=== PATIENT | male | born 1945 | race Caucasian/White ===

== ENCOUNTER 2020-12-27 16:04 | Inpatient (IN) | payer MEDICARE, MEDICAID ==
[~2020-12-27] VITALS: Ht 167.6 cm; Wt 61.2 kg
[~2020-12-27 16:04] MED LIST: CIPR-173; TAM04C
[2020-12-27] MEDS ORDERED: METOPROLOL TARTRATE 1MG/1ML-5ML VIAL IV ONE (16:30)
[2020-12-27 16:43] LABS: Basophils # (auto) 0 10 ^3/uL (0-0.2); Eosinophils # (auto) 0 10 ^3/uL (0-0.8); Hemoglobin 13.5 g/dL (13.5-17.5); Lymphocytes # (auto) 1.3 10 ^3/uL (0.4-5.4); Neutrophils # (auto) 2.9 10 ^3/uL (1.6-8.6); Nucleated Red Blood Cells % 0.1 %
[2020-12-27 16:45] LABS: Basophils % (auto) 0.3 % (0.0-2.0); Eosinophils % (auto) 0.4 % (0.0-7.0); Hematocrit 37.4 % (41.0-53.0); Lymphocytes % (auto) 26.7 % (10.0-50.0); Mean Corpuscular Hemoglobin 34.6 pg (28.0-32.0); Mean Corpuscular Hgb Conc. 36.1 g/dL (32.0-36.0); Mean Corpuscular Volume 95.9 fL (80.0-100.0); Monocytes # (auto) 0.6 10 ^3/uL (0-1.3); Monocytes % (auto) 11.7 % (0.0-12.0); Neutrophils % (auto) 60.9 % (37.0-80.0); Platelet Count (auto) 150 10^3/uL (140-450); Red Cell Distribution Width 12.8 % (11.8-14.3); White Blood Cell 4.8 10^3/uL (4.4-10.8)
[2020-12-27 16:54] LABS: Albumin 3.9 g/dL (3.4-5.0); Anion Gap 6 (5-15); Blood Urea Nitrogen 19 mg/dL (7-18); Carbon Dioxide 28 mmol/L (21-32); Chloride 102 mmol/L (98-107); Glucose 120 mg/dL (74-106); Potassium 4.1 mmol/L (3.5-5.1); Sodium 136 mmol/L (136-145)
[2020-12-27 17:00] LABS: Alanine Aminotransferase 24 U/L (16-61); Alkaline Phosphatase 84 U/L (45-117); Aspartate Aminotransferase 18 U/L (15-37); BUN/Creatinine Ratio 23.2; Bilirubin, Total 0.5 mg/dL (0.2-1.0); GFR African American 117 mL/min; GFR Non-African American 97 mL/min
[2020-12-27 17:26] LABS: Urine Bacteria NONE SEEN /hpf (None Seen); Urine Blood Negative /uL (Negative); Urine Specific Gravity 1.006 (1.001-1.035); Urine WBC <1 /hpf (0 - 3)
[2020-12-27] MEDS ORDERED: CLON0.5T PO (18:47)
[2020-12-27] MEDS ORDERED: DRON400T PO (18:47)
[2020-12-27 18:53] VITALS: BP 102/97
[2020-12-27] MEDS ORDERED: MORPHINE SULFATE 4 MG/ML SYR/VIAL IV PRN (19:00)
[2020-12-27] MEDS ORDERED: MORPHINE SULF INJ 2 MG/ML SYRINGE 1ML IV PRN (19:00)
[2020-12-27] MEDS ORDERED: clonazePAM 0.5 MG TAB PO PRN (19:00)
[2020-12-27] MEDS ORDERED: NITROGLYCERIN 0.4 MG SL TAB SL PRN (19:00)
[2020-12-27] MEDS ORDERED: ACETAMINOPHEN 325 MG TAB PO PRN (19:00)
[2020-12-27] MEDS ORDERED: HYDROcodone-ACET 5/325MG TAB PO PRN (19:00)
[2020-12-27] MEDS ORDERED: PATIENTS OWN MEDICATION (Dronedarone Hydrochloride (Multaq) 1 TAB) PO SCH (22:00)
[2020-12-28] MEDS ORDERED: TAMSULOSIN HYDROCHLORIDE 0.4 MG CAP PO SCH (10:00)
== END 2020-12-27 19:02 | disposition left against medical advice (07) | DRG 310 ==
LOC: ER 16:04 → TELE 18:56
PROVIDERS: ADMIT Nurse Practitioner; ATTEND Nurse Practitioner
DX: I47.1 Supraventricular tachycardia (principal); I48.19 Other persistent atrial fibrillation; I10 Essential (primary) hypertension; F41.9 Anxiety disorder, unspecified; Z53.29 Procedure and treatment not carried out because of patient's decision for other reasons; N40.0 Benign prostatic hyperplasia without lower urinary tract symptoms; Z88.0 Allergy status to penicillin; Z88.2 Allergy status to sulfonamides; Z79.899 Other long term (current) drug therapy; Z86.16 Personal history of COVID-19
CPT/HCPCS: 36415; 71045; 80053; 81001; 83735; 84443; 84484; 85025; 93005; 96374; G0378

== ENCOUNTER 2020-12-29 02:50 | Inpatient (IN) | payer MEDICARE, MEDICAID ==
[~2020-12-29] VITALS: Ht 167.6 cm; Wt 69.6 kg
[~2020-12-29 02:50] MED LIST changes: +CLON0.5T PO; +DRON400T PO
[2020-12-29] MEDS ORDERED: dilTIAZem 25 MG/5 ML VIAL IV ONE ×2 (03:30→04:15)
[2020-12-29] MEDS: dilTIAZem HCL 60 MG TAB PO ONE (03:30)
[2020-12-29 03:52] LABS: Basophils # (auto) 0 10 ^3/uL (0-0.2); Basophils % (auto) 0.5 % (0.0-2.0); Eosinophils # (auto) 0 10 ^3/uL (0-0.8); Eosinophils % (auto) 0.7 % (0.0-7.0); Hematocrit 37.8 % (41.0-53.0); Hemoglobin 13.4 g/dL (13.5-17.5); Lymphocytes # (auto) 1.1 10 ^3/uL (0.4-5.4); Lymphocytes % (auto) 21.9 % (10.0-50.0); Mean Corpuscular Hemoglobin 34.5 pg (28.0-32.0); Mean Corpuscular Hgb Conc. 35.6 g/dL (32.0-36.0); Mean Corpuscular Volume 97.1 fL (80.0-100.0); Monocytes # (auto) 0.6 10 ^3/uL (0-1.3); Monocytes % (auto) 11.9 % (0.0-12.0); Neutrophils # (auto) 3.2 10 ^3/uL (1.6-8.6); Nucleated Red Blood Cells % 0.1 %; Red Blood Cells 3.89 10^6/uL (4.5-5.90); Red Cell Distribution Width 13.1 % (11.8-14.3); White Blood Cell 4.9 10^3/uL (4.4-10.8)
[2020-12-29 04:07] LABS: INR 1.05 (0.9-1.15); Partial Thromboplastin Time 26.3 sec (23.0-31.2)
[2020-12-29 04:15] LABS: Alanine Aminotransferase 23 U/L (16-61); Albumin 4.2 g/dL (3.4-5.0); Anion Gap 11 (5-15); Aspartate Aminotransferase 18 U/L (15-37); BUN/Creatinine Ratio 25.6; Blood Urea Nitrogen 22 mg/dL (7-18); Calcium 8.5 mg/dL (8.5-10.1); Carbon Dioxide 25 mmol/L (21-32); Chloride 99 mmol/L (98-107); GFR African American 111 mL/min; GFR Non-African American 92 mL/min; Glucose 97 mg/dL (74-106); Magnesium 2.5 mg/dL (1.6-2.6); Potassium 3.9 mmol/L (3.5-5.1); Sodium 135 mmol/L (136-145)
[2020-12-29 04:21] LABS: Alkaline Phosphatase 78 U/L (45-117); Bilirubin, Total 0.5 mg/dL (0.2-1.0); Total Protein 7.1 g/dL (6.4-8.2)
[2020-12-29] MEDS ORDERED: METOPROLOL TARTRATE 1MG/1ML-5ML VIAL IV ONE (04:39)
[2020-12-29] MEDS: METOPROLOL TARTRATE 1MG/1ML-5ML VIAL IV SCH ×2 (04:51→05:06)
[2020-12-29] MEDS ORDERED: NITROGLYCERIN 0.4 MG SL TAB SL PRN (07:30)
[2020-12-29] MEDS ORDERED: DOCUSATE SOD 100 MG CAP PO PRN (07:30)
[2020-12-29] MEDS ORDERED: MORPHINE SULFATE 4 MG/ML SYR/VIAL IV PRN (07:30)
[2020-12-29] MEDS ORDERED: HYDROcodone-ACET 5/325MG TAB PO PRN (07:30)
[2020-12-29] MEDS ORDERED: MORPHINE SULFATE INJECTION 2 MG/ML SYRG IV PRN (07:30)
[2020-12-29] MEDS: FAMOTIDINE 20 MG TAB PO SCH ×2 (09:20→21:57)
[2020-12-29] MEDS: clonazePAM 0.5 MG TAB PO PRN ×2 (09:20→21:59)
[2020-12-29] MEDS: DRONEDARONE HCL 400 MG TAB PO SCH ×2 (09:20→21:54)
[2020-12-29 11:38] LABS: Cholesterol 114 mg/dL (< 200); HDL Cholesterol 65 mg/dL (40-59); LDL Cholesterol 49 mg/dL (< 100); Triglycerides 22 mg/dL (< 150)
[2020-12-29 14:34] VITALS: BP 138/72
[2020-12-29 17:00] VITALS: BP 120/64
[2020-12-29] MEDS ORDERED: TAMSULOSIN HYDROCHLORIDE 0.4 MG CAP PO SCH (18:00)
[2020-12-29] MEDS: METOPROLOL TARTRATE 25 MG TAB PO SCH (21:54)
[2020-12-29 22:00] VITALS: BP 113/68
[2020-12-30 05:00] VITALS: BP 102/53
[2020-12-30 07:49] LABS: Potassium 4.1 mmol/L (3.5-5.1)
[2020-12-30 07:51] LABS: Basophils # (auto) 0 10 ^3/uL (0-0.2); Basophils % (auto) 0.7 % (0.0-2.0); Eosinophils # (auto) 0 10 ^3/uL (0-0.8); Eosinophils % (auto) 1.4 % (0.0-7.0); Hematocrit 32.9 % (41.0-53.0); Hemoglobin 11.7 g/dL (13.5-17.5); Lymphocytes # (auto) 1.2 10 ^3/uL (0.4-5.4); Lymphocytes % (auto) 37.2 % (10.0-50.0); Mean Corpuscular Hemoglobin 34.1 pg (28.0-32.0); Mean Corpuscular Hgb Conc. 35.5 g/dL (32.0-36.0); Monocytes # (auto) 0.4 10 ^3/uL (0-1.3); Monocytes % (auto) 12.2 % (0.0-12.0); Neutrophils # (auto) 1.6 10 ^3/uL (1.6-8.6); Neutrophils % (auto) 48.5 % (37.0-80.0); Red Blood Cells 3.42 10^6/uL (4.5-5.90); Red Cell Distribution Width 12.9 % (11.8-14.3); White Blood Cell 3.2 10^3/uL (4.4-10.8)
[2020-12-30 07:56] LABS: Albumin 3.2 g/dL (3.4-5.0); BUN/Creatinine Ratio 17.9; Calcium 8.4 mg/dL (8.5-10.1)
[2020-12-30 07:59] LABS: Bilirubin, Total 0.6 mg/dL (0.2-1.0); Total Protein 5.7 g/dL (6.4-8.2)
[2020-12-30 09:00] VITALS: BP 102/61
[2020-12-30] MEDS: METOPROLOL TARTRATE 25 MG TAB PO SCH (10:00)
[2020-12-30] MEDS: DRONEDARONE HCL 400 MG TAB PO SCH (10:58)
[2020-12-30] MEDS: FAMOTIDINE 20 MG TAB PO SCH (10:58)
[2020-12-30 11:09] VITALS: BP 102/61
== END 2020-12-30 14:00 | disposition home or self-care (01) | DRG 310 ==
LOC: ER 02:52 → TELE 02:53 → TELE-WESTW 13:28
PROVIDERS: ADMIT Nurse Practitioner; ATTEND Nurse Practitioner
DX: I48.0 Paroxysmal atrial fibrillation (principal); I48.92 Unspecified atrial flutter; F41.9 Anxiety disorder, unspecified; Z20.822 Contact with and (suspected) exposure to COVID-19; N40.0 Benign prostatic hyperplasia without lower urinary tract symptoms; F32.9 Major depressive disorder, single episode, unspecified; I10 Essential (primary) hypertension; I49.9 Cardiac arrhythmia, unspecified; Z87.01 Personal history of pneumonia (recurrent); Z91.19 Patient's noncompliance with other medical treatment and regimen; Z79.899 Other long term (current) drug therapy; Z86.711 Personal history of pulmonary embolism; Z87.891 Personal history of nicotine dependence; Z88.0 Allergy status to penicillin; Z88.2 Allergy status to sulfonamides
CPT/HCPCS: 36415; 71045; 80053; 80061; 83735; 83880; 84443; 84484; 85025; 85610; 85730; 87081; 87426; 93005; 93306; 96374; 96375; 96376; G0378

== ENCOUNTER 2023-03-30 17:02 | Emergency (ER) | payer MEDICARE, MEDICAID ==
[~2023-03-30] VITALS: Ht 170.2 cm; Wt 67.0 kg
[~2023-03-30 17:02] MED LIST changes: -CIPR-173; +CLON-1003 PO; -CLON0.5T PO; -TAM04C
[2023-03-30 17:59] LABS: Basophils # (auto) 0 10 ^3/uL (0-0.2); Eosinophils # (auto) 0 10 ^3/uL (0-0.8); Monocytes # (auto) 0.5 10 ^3/uL (0-1.3); Neutrophils # (auto) 4.2 10 ^3/uL (1.6-8.6)
[2023-03-30 18:01] LABS: Basophils % (auto) 0.3 % (0.0-2.0); Eosinophils % (auto) 0.2 % (0.0-7.0); Hematocrit 38.7 % (41.0-53.0); Hemoglobin 13.6 g/dL (13.5-17.5); Lymphocytes % (auto) 17.4 % (10.0-50.0); Mean Corpuscular Hemoglobin 34.5 pg (28.0-32.0); Mean Corpuscular Hgb Conc. 35.3 g/dL (32.0-36.0); Mean Corpuscular Volume 97.7 fL (80.0-100.0); Monocytes % (auto) 8.6 % (0.0-12.0); Neutrophils % (auto) 73.5 % (37.0-80.0); Red Blood Cells 3.96 10^6/uL (4.5-5.90); Red Cell Distribution Width 12.5 % (11.8-14.3); White Blood Cell 5.8 10^3/uL (4.4-10.8)
[2023-03-30 18:14] LABS: Albumin 4.1 g/dL (3.4-5.0); Calcium 8.3 mg/dL (8.5-10.1); Potassium 4.3 mmol/L (3.5-5.1)
[2023-03-30 18:18] LABS: BUN/Creatinine Ratio 25.3 (10.0-20.0); Bilirubin, Total 0.9 mg/dL (0.2-1.0); Total Protein 6.3 g/dL (6.4-8.2)
[2023-03-30 18:29] LABS: INR 1.1 (0.9-1.15); Partial Thromboplastin Time 27.2 sec (24.6-33.4)
[2023-03-30 21:00] VITALS: BP 123/57
== END 2023-03-30 21:26 | disposition left against medical advice (07) ==
LOC: ER 17:02
DX: I48.20 Chronic atrial fibrillation, unspecified (principal); I49.9 Cardiac arrhythmia, unspecified; R77.8 Other specified abnormalities of plasma proteins
CPT/HCPCS: 36415; 71045; 80053; 83735; 83880; 84484; 85025; 85610; 85730; 93005; 99291

== ENCOUNTER 2024-02-11 02:01 | Inpatient (IN) | payer MEDICARE, MEDICAID ==
[~2024-02-11] VITALS: Ht 170.2 cm; Wt 72.1 kg
[2024-02-11 04:37] LABS: Urine Bacteria FEW /hpf (None Seen); Urine Blood 2+ /uL (Negative); Urine Clarity Clear (Clear); Urine Color Yellow (Yellow); Urine Protein, UAD Negative (Negative); Urine Specific Gravity 1.015 (1.001-1.035); Urine Urobilinogen Normal (Negative); Urine WBC 6 /hpf (0 - 3)
[2024-02-11 09:52] LABS: Basophils # (auto) 0 10 ^3/uL (0-0.2); Basophils % (auto) 0.4 % (0.0-2.0); Eosinophils # (auto) 0 10 ^3/uL (0-0.8); Hemoglobin 12.7 g/dL (13.5-17.5); Lymphocytes % (auto) 25.7 % (10.0-50.0); Mean Corpuscular Hemoglobin 33.5 pg (28.0-32.0); Mean Corpuscular Hgb Conc. 35.1 g/dL (32.0-36.0); Mean Corpuscular Volume 95.3 fL (80.0-100.0); Monocytes # (auto) 0.4 10 ^3/uL (0-1.3); Monocytes % (auto) 10.1 % (0.0-12.0); Neutrophils # (auto) 2.5 10 ^3/uL (1.6-8.6); Neutrophils % (auto) 62.8 % (37.0-80.0); Red Blood Cells 3.78 10^6/uL (4.5-5.90); Red Cell Distribution Width 12.5 % (11.8-14.3)
[2024-02-11 09:58] LABS: INR 1.1 (0.9-1.15); Partial Thromboplastin Time 26.8 SEC (24.5-34.5); Prothrombin Time 11.6 sec (9.3-11.8)
[2024-02-11] MEDS: levoFLOXacin 500MG 100 ML IV ONE (10:05)
[2024-02-11] MEDS: SODIUM CHLORIDE 0.9% 1,000 ML IV ONE ×2 (10:05→12:44)
[2024-02-11 10:07] LABS: Alanine Aminotransferase 15 U/L (7-40); Albumin 4.5 g/dL (3.2-4.8); Alkaline Phosphatase 64 U/L (46-116); Anion Gap 5 (5-15); Aspartate Aminotransferase 19 U/L (13-40); BUN/Creatinine Ratio 20.7 (10.0-20.0); Bilirubin, Total 0.7 mg/dL (0.2-1.0); Blood Urea Nitrogen 19 mg/dL (9-23); Calcium 9.5 mg/dL (8.5-10.1); Carbon Dioxide 28 mmol/L (20-30); Chloride 103 mmol/L (98-107); Glucose 115 mg/dL (74-106); Potassium 3.9 mmol/L (3.5-5.1); Sodium 136 mmol/L (136-145); Total Protein 6.6 g/dL (5.7-8.2)
[2024-02-11 10:11] VITALS: PULSE 67; RESP 18; O2SAT 97
[2024-02-11] MEDS ORDERED: NITROGLYCERIN 0.4 MG SL TAB SL PRN (14:00)
[2024-02-11] MEDS ORDERED: MORPHINE SULFATE INJ 2 MG/ml SYRG IV PRN ×2 (14:00)
[2024-02-11] MEDS ORDERED: HYDROcodone-ACET 5/325MG TAB PO PRN (14:00)
[2024-02-11] MEDS ORDERED: ACETAMINOPHEN 325 MG TAB PO PRN (14:00)
[2024-02-11 17:00] VITALS: BP 138/68; PULSE 51; RESP 18; TEMP 98.4; O2SAT 99
[2024-02-11 20:00] VITALS: PULSE 53; RESP 18; O2SAT 97
[2024-02-11 21:00] VITALS: BP 161/56; PULSE 53; RESP 18; TEMP 98.1; O2SAT 97
[2024-02-11] MEDS: DRONEDARONE HCL 400 MG TAB PO SCH (22:19)
[2024-02-11 22:20] VITALS: BP 139/58; PULSE 56
[2024-02-12] VITALS (8 sets, daily range): BP systolic 119–155; BP diastolic 51–74; PULSE 52–70; RESP 18–22; TEMP 97.5–98.4; O2SAT 94–99
[2024-02-12 07:53] LABS: Basophils # (auto) 0 10 ^3/uL (0-0.2); Basophils % (auto) 0.5 % (0.0-2.0); Eosinophils # (auto) 0.1 10 ^3/uL (0-0.8); Eosinophils % (auto) 1.5 % (0.0-7.0); Hemoglobin 12.3 g/dL (13.5-17.5); Lymphocytes % (auto) 29.5 % (10.0-50.0); Mean Corpuscular Hemoglobin 33.9 pg (28.0-32.0); Mean Corpuscular Hgb Conc. 35.2 g/dL (32.0-36.0); Mean Corpuscular Volume 96.2 fL (80.0-100.0); Monocytes # (auto) 0.5 10 ^3/uL (0-1.3); Monocytes % (auto) 13.6 % (0.0-12.0); Neutrophils # (auto) 1.9 10 ^3/uL (1.6-8.6); Neutrophils % (auto) 54.9 % (37.0-80.0); Nucleated Red Blood Cells % 0.1 %; Red Blood Cells 3.64 10^6/uL (4.5-5.90); Red Cell Distribution Width 12.5 % (11.8-14.3); White Blood Cell 3.4 10^3/uL (4.4-10.8)
[2024-02-12 08:02] LABS: Chloride 108 mmol/L (98-107); Potassium 3.9 mmol/L (3.5-5.1); Sodium 140 mmol/L (136-145)
[2024-02-12 08:03] LABS: Anion Gap 4 (5-15); Calcium 9.3 mg/dL (8.5-10.1); Carbon Dioxide 28 mmol/L (20-30)
[2024-02-12 08:08] LABS: BUN/Creatinine Ratio 16.5 (10.0-20.0); Blood Urea Nitrogen 14 mg/dL (9-23); Glucose 96 mg/dL (74-106)
[2024-02-12] MEDS: cefTRIAXone 1GM/50ML D5W 50 ML IV ONE (09:22)
[2024-02-12] MEDS: METOPROLOL TARTRATE 25 MG TAB PO SCH (10:00)
[2024-02-12] MEDS ORDERED: ENOXAPARIN SOD 40 MG/0.4 ML SYRINGE SC SCH (10:00)
[2024-02-13 01:00] VITALS: BP 120/60; PULSE 61; RESP 20; TEMP 98.1; O2SAT 95
[2024-02-13 05:00] VITALS: BP 120/59; PULSE 69; RESP 20; TEMP 98.1; O2SAT 94
[2024-02-13 07:30] VITALS: PULSE 47; RESP 18; O2SAT 97
[2024-02-13 08:06] LABS: PSA Free 0.51 ng/mL; Prostate Specific Antigen 1.9 ng/mL (0.0-4.0)
[2024-02-13 08:42] VITALS: BP 144/52; PULSE 50; RESP 18; TEMP 97.1; O2SAT 99
== END 2024-02-13 12:05 | disposition left against medical advice (07) | DRG 690 ==
LOC: ER 02:01 → OVERFLOW 14:00 → EAST 16:26 → TELE-EAST 02-12 10:21
PROVIDERS: ADMIT Nurse Practitioner Family; ATTEND Nurse Practitioner Family
DX: N10 Acute pyelonephritis (principal); I47.19 Other supraventricular tachycardia; I48.92 Unspecified atrial flutter; E66.01 Morbid (severe) obesity due to excess calories; I48.0 Paroxysmal atrial fibrillation; Z53.29 Procedure and treatment not carried out because of patient's decision for other reasons; N40.0 Benign prostatic hyperplasia without lower urinary tract symptoms; D64.9 Anemia, unspecified; I49.9 Cardiac arrhythmia, unspecified; I10 Essential (primary) hypertension; Z66 Do not resuscitate; I37.1 Nonrheumatic pulmonary valve insufficiency; Z68.24 Body mass index [BMI] 24.0-24.9, adult; Z88.0 Allergy status to penicillin; Z82.49 Family history of ischemic heart disease and other diseases of the circulatory system; Z79.899 Other long term (current) drug therapy; Z87.891 Personal history of nicotine dependence; Z91.199 Patient's noncompliance with other medical treatment and regimen due to unspecified reason; Z88.2 Allergy status to sulfonamides
CPT/HCPCS: 36415; 71045; 74176; 80048; 80053; 81001; 83880; 84154; 84484; 85025; 85610; 85730; 87086; 93306; 96365; G0378; J1956

== ENCOUNTER 2025-08-31 21:38 | Inpatient (IN) | payer MEDICARE, MEDICAID ==
[~2025-08-31] VITALS: Ht 170.2 cm; Wt 69.2 kg
--- NOTE | 2025-08-31 22:07 | ED.PDOC ---
History of Present Illness HPI Comments 80-year-old male who came to ER due to urinary issues. Patient has for the past 3 days has been having intermittent episodes of gross hematuria. Noted also of urinary frequency. Denies any other urinary symptoms such as dysuria or lower abdominal pain or back pains. Patient currently being treated for UTI with Macrobid. Does have history of hypertension and AFib, denies taking any blood thinners REVIEW OF SYSTEMS: General: No fever, no chills, or fatigue HEENT: No sore throat, no earache, no congestion, no neck pain. Cardiac: No chest pain. No palpitations. Lungs: No shortness of breath, no cough. GI: No nausea, no vomiting, no diarrhea, no constipation, no abdominal pain : No dysuria, frequency, or urgency. (+) hematuria. Musculoskeletal: No joint pain , no joint swelling, no extremity edema. Skin: No rash, no itching. Neuro: No headache, no dizziness, no weakness EXAM: General: Awake, alert and oriented. No acute distress. Skin: Skin in warm, dry and intact. Appropriate color for ethnicity. HEENT: The head is normocephalic and atraumatic. Conjunctivae are clear without exudates or hemorrhage. Sclera is non-icteric. EOM are intact. No signs of nystagmus. Eyelids are normal in appearance without swelling or lesions. Oral mucosa is pink and moist Neck: The neck is supple with normal range of motion. No JVD. Cardiac: Heart rate and rhythm are normal. No murmurs, gallops, or rubs are auscultated. Respiratory: No signs of respiratory distress. Lung sounds are clear in all lobes bilaterally without rales, rhonchi, or wheezes. Abdominal: Abdomen is soft, non-tender without distention. Bowel sounds are present and normoactive in all four quadrants. No CVA tenderness Extremities: Upper and lower extremities are atraumatic in appearance without deformity or edema. Neurological: The patient is awake, alert and oriented to person, place, and time with normal speech. Speech is clear. There is no facial asymmetry. Psychiatric: Appropriate mood and affect. Good judgement and insight Chief Complaint: Urinary Time Seen by MD: 22:07 Primary Care Provider: NONE Reviewed Notes: Nurses Notes Allergies: Coded Allergies: Penicillins (Verified Allergy, Unknown, 12/27/20) Sulfa Drugs (Verified Allergy, Unknown, 12/27/20) Home Meds Reported Medications Clonazepam (Klonopin) 0.5 Mg Tab, 1 TAB PO BID PRN for ANXIETY, #60 TAB 1 Refill 12/27/20 Dronedarone Hydrochloride (Multaq) 400 Mg Tab, 1 TAB PO BID, #180 TAB 1 Refill 12/27/20 Information Source: Patient Mode of Arrival: Ambulatory Past Medical History PAST MEDICAL HISTORY: AFIB, HTN Surgical History: Hernia Repair Family History Family History: Reviewed,noncontributory to illness Social History Smoker: Non-Smoker Alcohol: Denies ETOH Use Drugs: Denies Drug Use Lives In: Home Was a procedure done? Was a procedure done?: No Differential Dx Considerations may include: Urinary tract infection, kidney stones, anemia, other X-Ray, Labs, Meds, VS Vital Signs Date Time Temp Pulse Resp B/P (MAP) Pulse Ox O2 Delivery O2 Flow Rate FiO2 09/01/25 00:00 98.4 53 12 159/98 (118) 97 98.4 08/31/25 21:44 97.6 58 18 174/94 98 97.6 Lab Test 08/31/25 22:30 08/31/25 22:16 Range/Units Urine Color Colorless Yellow Urine Clarity Clear Clear Urine pH 7.0 5.0-9.0 Urine Specific [place] 1.005 1.001-1.035 Urine Protein Negative Negative Urine Ketones Negative Negative Urine Blood 2+ H Negative /uL Urine Nitrite Negative Negative Urine Bilirubin Negative Negative Urine Urobilinogen Normal Negative mg/dL Urine Leukocyte Esterase Negative Negative /uL Urine RBC 5 0 - 3 /hpf Urine Microscopic WBC 1 0-3 /HPF Urine Squamous Epithelial Cells None seen <5 /hpf Urine Bacteria None seen None Seen /hpf Urine Glucose Normal Normal mg/dL White Blood Count 4.6 4.4-10.8 10^3/uL Red Blood Count 4.00 L 4.5-5.90 10^6/uL Hemoglobin 13.1 L 13.5-17.5 g/dL Hematocrit 36.7 L 41.0-53.0 % Mean Corpuscular Volume 91.8 80.0-100.0 fL Mean Corpuscular Hemoglobin 32.9 H 28.0-32.0 pg Mean Corpuscular Hemoglobin Concent 35.8 32.0-36.0 g/dL Red Cell Distribution Width 12.4 11.8-14.3 % Platelet Count 151 140-450 10^3/uL Mean Platelet Volume 8.5 6.9-10.8 fL Neutrophils (%) (Auto) 56.7 37.0-80.0 % Lymphocytes (%) (Auto) 31.1 10.0-50.0 % Monocytes (%) (Auto) 11.5 0.0-12.0 % Eosinophils (%) (Auto) 0.3 0.0-7.0 % Basophils (%) (Auto) 0.4 0.0-2.0 % Neutrophils # (Auto) 2.6 1.6-8.6 10 ^3/uL Lymphocytes # (Auto) 1.4 0.4-5.4 10 ^3/uL Monocytes # (Auto) 0.5 0-1.3 10 ^3/uL Eosinophils # (Auto) 0 0-0.8 10 ^3/uL Basophils # (Auto) 0 0-0.2 10 ^3/uL Nucleated Red Blood Cells 0.0 % Prothrombin Time 11.6 9.3-11.8 sec Prothrombin Time INR 1.11 0.9-1.15 Sodium Level 132 L 136-145 mmol/L Potassium Level 4.4 3.5-5.1 mmol/L Chloride Level 99 98-107 mmol/L Carbon Dioxide Level 26 20-31 mmol/L Anion Gap 7 5-15 Blood Urea Nitrogen 15 9-23 mg/dL Creatinine 0.87 0.700-1.30 mg/dL Glomerular Filtration Rate Calc 86 >90 mL/min BUN/Creatinine Ratio 17.2 10.0-20.0 Serum Glucose 109 H 74-106 mg/dL Calcium Level 9.2 8.7-10.4 mg/dL Exam: CT CT AB PEL WO CON-NO ORAL OR IV History: Hematuria Comparison Study: CT CT AB PEL WO CON-NO ORAL OR IV on DOS: 02/11/24 TECHNIQUE: Multidetector CT of the abdomen and pelvis was performed from lung bases to pubic symphysis. Imaging was performed without IV contrast. Axial, coronal, and sagittal multiplanar reformats were obtained from the axial data set by the technologist. RADIATION DOSE: CTDI vol 9.2 mGy. DLP 463.6 mGy.cm Findings: Limited evaluation of the solid organs in the absence of IV contrast. Lungs: Minimal basilar atelectasis/scarring. Liver: Hepatic cysts and additional too small to characterize lesions. Spleen: Unremarkable. Pancreas: Unremarkable. Gallbladder: Unremarkable. Adrenals: Unremarkable Kidneys: Right renal cyst. No hydronephrosis. Pelvic Viscera: There is wall thickening and mild stranding about the urinary bladder. Marked prostatomegaly with indentation upon the posterior aspect of the urinary bladder. Vasculature: Atherosclerotic aortoiliac calcification. Retroperitoneum: Unremarkable. Bowel: No bowel obstruction. The appendix is normal. Musculoskeletal: Fusion of L2-3. Multilevel schmorl's nodes. Soft tissues: Tiny fat containing left inguinal hernia. Impression: 1. Wall thickening of the urinary bladder, clinical correlation is suggested to exclude cystitis. Prostatomegaly with indentation upon the posterior aspect of the urinary bladder. 2. Additional findings as detailed. Time of 1ST Reevaluation: 22:03 Reevaluation 1ST: Unchanged Patient Education/Counseling: Need For Follow Up Family Education/Counseling: No Family Present SEPSIS Sepsis Screen Date sepsis recognized/suspect: Aug 31, 2025 Time Sepsis recognized/suspect: 2145 Recent Procedure: No On Antibiotic Therapy: Yes Respiratory Rate >20: No Heart Rate >90: No Temp<36 C (96.8 F) or >38.3 C: No SBP <90 or MAP <65 mmHG: No New Acute Mental Status Change: No Is the patient on CPAP, BIPAP,: No Physician Orders Ct Ab Pel Wo Con-No Oral Or Iv (08/31/25 22:08) Admit (09/01/25 00:03) Acetaminophen Tablet (Tylenol Tablet) (09/01/25 00:15) Hydrocodone-Acet 5/325mg Tab ([place] 5/32 (09/01/25 00:15) Ondansetron Hcl (Zofran) (09/01/25 00:15) Docusate Sodium Capsule (Colace Capsule) (09/01/25 00:15) Complete Blood Count (09/02/25 04:00) Comprehensive Metabolic Panel (09/02/25 04:00) Cardiac Diet-2gna,Lofat,Lochol (09/01/25 Breakfast) Morphine Sulfate Injection (09/01/25 00:15) Nitroglycerin Sublingual (Ntrostat Subli (09/01/25 00:15) Morphine Sulfate Injection (09/01/25 00:15) Stat Ekg For Chest Pain (09/01/25 00:03) Notify Md Of Changes From Base (09/01/25 00:03) Payroll Machine Operator For 24 Hours (09/01/25 00:03) Emergency Dysrhythmia Protocol (09/01/25 00:03) Rhythm Strips Once Every Shift (09/01/25 00:03) Oxygen By Nasal Cannula (09/01/25 00:03) Ceftriaxone 1gm/50ml (Rocephin) (09/01/25 09:00) * Urology Consult (09/01/25 00:06) Vital Signs Date Time Temp Pulse Resp B/P (MAP) Pulse Ox O2 Delivery O2 Flow Rate FiO2 09/01/25 00:00 98.4 53 12 159/98 (118) 97 98.4 08/31/25 21:44 97.6 58 18 174/94 98 97.6 Laboratory Tests Test 08/31/25 22:16 White Blood Count 4.6 10^3/uL (4.4-10.8) Departure 1 Departure Time of Disposition: 23:27 Impression: Primary Impression: Hematuria Disposition: ADMITTED INPATIENT Condition: Stable Comments Patient admitted to hospitalist service for further treatment, evaluation and monitoring. Critical Care Note Critical Care Time?: No Stability Stability form required: No Heart Score Heart Score: Heart Score Response (Comments) Value History N/A 0 EKG N/A 0 Age N/A 0 Risk Factors N/A 0 Troponin N/A 0 Total 0 I personally scribed for WALTER VERAS MD ([email or web address]) on 08/31/25 at 22:07. Electronically submitted by Kenny Andre ([email or web address]). I personally scribed for WALTER VERAS MD ([email or web address]) on 08/31/25 at 22:08. Electronically submitted by Kenny Andre ([email or web address]). I personally scribed for WALTER VERAS MD ([email or web address]) on 08/31/25 at 23:33. Electronically submitted by Kenny Andre ([email or web address]). WALTER VERAS MD Aug 31, 2025 22:07
[2025-08-31 22:44] LABS: Hematocrit 36.7 % (41.0-53.0); Hemoglobin 13.1 g/dL (13.5-17.5); Mean Corpuscular Hemoglobin 32.9 pg (28.0-32.0); Mean Corpuscular Volume 91.8 fL (80.0-100.0); Nucleated Red Blood Cells % 0.0 %
[2025-08-31 22:49] LABS: Chloride 99 mmol/L (98-107); Potassium 4.4 mmol/L (3.5-5.1)
[2025-08-31 22:50] LABS: Anion Gap 7 (5-15); Carbon Dioxide 26 mmol/L (20-31)
[2025-08-31 22:51] LABS: Calcium 9.2 mg/dL (8.7-10.4)
[2025-08-31 22:55] LABS: BUN/Creatinine Ratio 17.2 (10.0-20.0); Blood Urea Nitrogen 15 mg/dL (9-23)
[2025-08-31 22:58] LABS: INR 1.11 (0.9-1.15); Prothrombin Time 11.6 sec (9.3-11.8)
--- NOTE | 2025-08-31 23:02 | DVH ---
Exam: CT CT AB PEL WO CON-NO ORAL OR IV History: Hematuria Comparison Study: CT CT AB PEL WO CON-NO ORAL OR IV on DOS: 02/11/24 TECHNIQUE: Multidetector CT of the abdomen and pelvis was performed from lung bases to pubic symphysis. Imaging was performed without IV contrast. Axial, coronal, and sagittal multiplanar reformats were obtained from the axial data set by the technologist. RADIATION DOSE: CTDI vol 9.2 mGy. DLP 463.6 mGy.cm Findings: Limited evaluation of the solid organs in the absence of IV contrast. Lungs: Minimal basilar atelectasis/scarring. Liver: Hepatic cysts and additional too small to characterize lesions. Spleen: Unremarkable. Pancreas: Unremarkable. Gallbladder: Unremarkable. Adrenals: Unremarkable Kidneys: Right renal cyst. No hydronephrosis. Pelvic Viscera: There is wall thickening and mild stranding about the urinary bladder. Marked prostatomegaly with indentation upon the posterior aspect of the urinary bladder. Vasculature: Atherosclerotic aortoiliac calcification. Retroperitoneum: Unremarkable. Bowel: No bowel obstruction. The appendix is normal. Musculoskeletal: Fusion of L2-3. Multilevel schmorl's nodes. Soft tissues: Tiny fat containing left inguinal hernia. Impression: 1. Wall thickening of the urinary bladder, clinical correlation is suggested to exclude cystitis. Prostatomegaly with indentation upon the posterior aspect of the urinary bladder. 2. Additional findings as detailed.
[2025-08-31 23:04] LABS: Glucose 109 mg/dL (74-106); Sodium 132 mmol/L (136-145)
[2025-08-31 23:11] LABS: Urine Protein, UAD Negative (Negative)
[2025-09-01] MEDS ORDERED: MORPHINE SULFATE INJ 2 MG/ml SYRG IV PRN ×2 (00:15)
[2025-09-01] MEDS ORDERED: HYDROcodone-ACET 5/325MG TAB PO PRN (00:15)
[2025-09-01] MEDS ORDERED: ONDANSETRON HCL 4 MG/2 ML VIAL IV PRN (00:15)
[2025-09-01] MEDS ORDERED: ACETAMINOPHEN 325 MG TAB PO PRN (00:15)
[2025-09-01] MEDS ORDERED: NITROGLYCERIN 0.4 MG SL TAB SL PRN (00:15)
[2025-09-01] MEDS ORDERED: DOCUSATE SOD 100 MG CAP PO PRN (00:15)
[2025-09-01 02:55] VITALS: PULSE 55; RESP 17; O2SAT 96
[2025-09-01 06:00] VITALS: BP 159/63; PULSE 59; RESP 12; TEMP 98.2; O2SAT 95
--- NOTE | 2025-09-01 08:04 | DVHPN2 ---
Progress Note - Dictate vital signs Vital Sign Date Time Temp Pulse Resp B/P (MAP) Pulse Ox O2 Delivery O2 Flow Rate FiO2 09/01/25 06:00 98.2 59 12 159/63 (95) 95 98.2 09/01/25 02:55 Room Air* 0 21 laboratory and microbiology Laboratory Tests 08/31/25 22:16 Test 08/31/25 22:16 Range/Units Serum Glucose 109 H 74-106 mg/dL LIBERTY JOHNSON NP Sep 01, 2025 08:04
--- NOTE | 2025-09-01 08:04 | DVHHP2 ---
Admitting Diagnosis: Hematuria History of Present Illness 80 year old male is complaining of hematuria for three days. Patient also reports urinary frequency. He reports he is taking Macrobid for UTI. Denies abdominal or back pain. While in the emergency department the patient was evaluated by the provider. Patient will be admitted for further evaluation and treatment. I discussed admission with the patient/family and is in agreement to treatment plan. Patient Family History: FH: congestive heart failure G8 FATHER FH: pulmonary embolism G8 MOTHER Allergies: Coded Allergies: Penicillins (Verified Allergy, Unknown, 12/27/20) Sulfa Drugs (Verified Allergy, Unknown, 12/27/20) Home Meds Reported Medications Metoprolol Tartrate (Lopressor) 25 Mg Tb, 1 TAB PO TID 09/01/25 Clonazepam (Klonopin) 0.5 Mg Tab, 1 TAB PO BID PRN for ANXIETY, #60 TAB 1 Refill 12/27/20 Dronedarone Hydrochloride (Multaq) 400 Mg Tab, 1 TAB PO BID, #180 TAB 1 Refill 12/27/20 Current Medications Current Medications Medications (Trade) Dose Ordered Sig/Reginald Route PRN Reason Start Time Stop Time Status Last Admin Acetaminophen (Tylenol Tablet) 325 mg Q4HP PRN PO MILD PAIN (1-3 PAIN SCALE) 09/01/25 00:15 09/01/25 08:03 DC Acetaminophen/ Hydrocodone Bitart ([place] 5/325MG Tab) 1 tab Q4HP PRN PO MODERATE PAIN (4-6 PAIN SCALE) 09/01/25 00:15 09/01/25 08:03 DC Ondansetron HCl (Zofran) 4 mg Q4HP PRN IV NAUSEA / VOMITING 09/01/25 00:15 09/01/25 08:03 DC Docusate Sodium (Colace Capsule) 100 mg BIDPRN PRN PO FOR CONSTIPATION 09/01/25 00:15 09/01/25 08:03 DC Morphine Sulfate 2 mg Q4HPRN PRN IV SEVERE PAIN (7-10 PAIN SCALE) 09/01/25 00:15 09/01/25 08:03 DC Nitroglycerin (Ntrostat Sublingual) 0.4 mg Q5MINP PRN SL FOR CHEST PAIN 09/01/25 00:15 09/01/25 08:03 DC Morphine Sulfate 2 mg Q30M PRN IV FOR CHEST PAIN 09/01/25 00:15 09/01/25 08:03 DC Ceftriaxone Sodium 50 ml @ 100 mls/hr DAILY@09 IV 09/01/25 09:00 09/01/25 08:03 DC Clonazepam (KlonoPIN TABLET) 0.5 mg BID PRN PO ANXIETY 09/01/25 08:15 Metoprolol Tartrate (Lopressor Tablet) 25 mg TID PO 09/01/25 14:00 Patient Own Medication 1 tab BID PO 09/01/25 10:00 Pantoprazole Sodium (Protonix) 40 mg DAILY IV 09/01/25 10:00 Review of Systems Hematuria Urinary frequency Vital Signs Vital Signs Date Time Temp Pulse Resp B/P (MAP) Pulse Ox O2 Delivery O2 Flow Rate FiO2 09/01/25 06:00 98.2 59 12 159/63 (95) 95 98.2 09/01/25 02:55 Room Air* 0 21 Physical Exam General Appearance: alert, no distress HEENT: EOMI, PERRLA, normal external inspect of ears, no icterus, no nasal drainage Neck: no carotid bruit, no jugular venous distention (JVD), no lymphadenopathy Chest: normal thorax Respiratory: clear to auscultation, normal air movement Cardiovascular: regular rate and rhythm, no diastolic murmur, no jugular venous distention (JVD), no rub, no systolic murmur Abdominal: soft, no hepatomegaly, no mass, no splenomegaly, no tenderness Musculoskeletal: no joint tenderness, no swelling Extremities: normal pulses, no calf tenderness, no clubbing, no cyanosis, no edema Skin: no bruising, no jaundice, no rash Neurological: alert, No focal deficit SEPSIS Sepsis Screen Date sepsis recognized/suspect: Aug 31, 2025 Time Sepsis recognized/suspect: 2145 Recent Procedure: No On Antibiotic Therapy: Yes Respiratory Rate >20: No Heart Rate >90: No Temp<36 C (96.8 F) or >38.3 C: No SBP <90 or MAP <65 mmHG: No New Acute Mental Status Change: No Is the patient on CPAP, BIPAP,: No Physician Orders Ct Ab Pel Wo Con-No Oral Or Iv (08/31/25 22:08) Admit (09/01/25 00:03) Oxygen By Nasal Cannula (09/01/25 00:03) * Urology Consult (09/01/25 00:06) Clonazepam Tablet (Klonopin Tablet) (09/01/25 08:15) Metoprolol Tartrate Tablet (Lopressor Ta (09/01/25 14:00) (Nf) Dronedarone Hydrochloride (Multaq) (09/01/25 10:00) Pantoprazole (Protonix) (09/01/25 10:00) Vital Signs Date Time Temp Pulse Resp B/P (MAP) Pulse Ox O2 Delivery O2 Flow Rate FiO2 09/01/25 06:00 98.2 59 12 159/63 (95) 95 98.2 09/01/25 02:59 97.8 55 17 154/71 (98) 96 97.8 09/01/25 02:55 55 17 96 Room Air* 0 21 09/01/25 02:55 97.8 55 17 154/71 (98) 96 97.8 09/01/25 02:25 98.1 52 12 176/77 (110) 97 98.1 09/01/25 00:00 98.4 53 12 159/98 (118) 97 98.4 08/31/25 21:44 97.6 58 18 174/94 98 97.6 Laboratory Tests Test 08/31/25 22:16 09/01/25 08:19 White Blood Count 4.6 10^3/uL (4.4-10.8) 5.7 10^3/uL (4.4-10.8) Results Labs Test 09/01/25 08:19 08/31/25 22:30 08/31/25 22:16 Range/Units White Blood Count 5.7 4.4-10.8 10^3/uL Red Blood Count 4.22 L 4.5-5.90 10^6/uL Hemoglobin 8.3 #L 13.5-17.5 g/dL Hematocrit 30.5 #L 41.0-53.0 % Mean Corpuscular Volume 72.4 #L 80.0-100.0 fL Mean Corpuscular Hemoglobin 19.6 L 28.0-32.0 pg Mean Corpuscular Hemoglobin Concent 27.1 L 32.0-36.0 g/dL Red Cell Distribution Width 23.1 H 11.8-14.3 % Platelet Count 254 # 140-450 10^3/uL Mean Platelet Volume 9.2 6.9-10.8 fL Neutrophils (%) (Auto) 66.5 37.0-80.0 % Lymphocytes (%) (Auto) 22.4 10.0-50.0 % Monocytes (%) (Auto) 7.4 0.0-12.0 % Eosinophils (%) (Auto) 2.4 0.0-7.0 % Basophils (%) (Auto) 1.3 0.0-2.0 % Neutrophils # (Auto) 3.8 1.6-8.6 10 ^3/uL Lymphocytes # (Auto) 1.3 0.4-5.4 10 ^3/uL Monocytes # (Auto) 0.4 0-1.3 10 ^3/uL Eosinophils # (Auto) 0.1 0-0.8 10 ^3/uL Basophils # (Auto) 0.1 0-0.2 10 ^3/uL Nucleated Red Blood Cells 0.2 % Sodium Level 143 # 136-145 mmol/L Potassium Level 4.2 3.5-5.1 mmol/L Chloride Level 105 98-107 mmol/L Carbon Dioxide Level 31 20-31 mmol/L Anion Gap 7 5-15 Blood Urea Nitrogen 9 9-23 mg/dL Creatinine 0.78 0.700-1.30 mg/dL Glomerular Filtration Rate Calc 89 >90 mL/min BUN/Creatinine Ratio 11.5 10.0-20.0 Serum Glucose 103 74-106 mg/dL Calcium Level 8.7 8.7-10.4 mg/dL Magnesium Level 2.0 1.6-2.6 mg/dL Total Bilirubin 0.2 0.2-1.0 mg/dL Aspartate Amino Transferase (AST) 27 13-40 U/L Alanine Aminotransferase (ALT) 21 7-40 U/L Alkaline Phosphatase 109 46-116 U/L Total Protein 7.8 5.7-8.2 g/dL Albumin 4.1 3.2-4.8 g/dL Urine Color Colorless Yellow Urine Clarity Clear Clear Urine pH 7.0 5.0-9.0 Urine Specific [place] 1.005 1.001-1.035 Urine Protein Negative Negative Urine Ketones Negative Negative Urine Blood 2+ H Negative /uL Urine Nitrite Negative Negative Urine Bilirubin Negative Negative Urine Urobilinogen Normal Negative mg/dL Urine Leukocyte Esterase Negative Negative /uL Urine RBC 5 0 - 3 /hpf Urine Microscopic WBC 1 0-3 /HPF Urine Squamous Epithelial Cells None seen <5 /hpf Urine Bacteria None seen None Seen /hpf Urine Glucose Normal Normal mg/dL Prothrombin Time 11.6 9.3-11.8 sec Prothrombin Time INR 1.11 0.9-1.15 Admitting Diagnosis: - Hematuria Urology consult, daily labs, medication - Paroxysmal atrial fibrillation Continue antiarrhythmics, monitoring - Benign essential HTN Continue antihypertensive - Anxiety Medication, monitoring Plan discussed with: Patient, Other LIBERTY JOHNSON [employer] Sep 01, 2025 08:04
[2025-09-01] MEDS ORDERED: MET25T PO (08:05)
[2025-09-01] MEDS ORDERED: clonazePAM 0.5 MG TAB PO PRN (08:15)
[2025-09-01 08:49] LABS: Hematocrit 30.5 % (41.0-53.0); Hemoglobin 8.3 g/dL (13.5-17.5); Mean Corpuscular Hemoglobin 19.6 pg (28.0-32.0); Mean Corpuscular Volume 72.4 fL (80.0-100.0); Nucleated Red Blood Cells % 0.2 %
[2025-09-01 09:04] LABS: Alanine Aminotransferase 21 U/L (7-40); Albumin 4.1 g/dL (3.2-4.8); Alkaline Phosphatase 109 U/L (46-116); Anion Gap 7 (5-15); BUN/Creatinine Ratio 11.5 (10.0-20.0); Calcium 8.7 mg/dL (8.7-10.4); Carbon Dioxide 31 mmol/L (20-31); Chloride 105 mmol/L (98-107); Glucose 103 mg/dL (74-106); Magnesium 2.0 mg/dL (1.6-2.6); Potassium 4.2 mmol/L (3.5-5.1); Sodium 143 mmol/L (136-145); Total Protein 7.8 g/dL (5.7-8.2)
[2025-09-01 09:08] LABS: Bilirubin, Total 0.2 mg/dL (0.2-1.0); Blood Urea Nitrogen 9 mg/dL (9-23)
[2025-09-01] MEDS ORDERED: PANTOPRAZOLE 40 MG/10 ML VIAL INJ IV SCH (10:00)
[2025-09-01] MEDS ORDERED: METOPROLOL TARTRATE 25 MG TAB PO SCH (14:00)
--- NOTE | 2025-09-01 19:52 | DVHDS2 ---
Discharge Summary Date of Admission Sep 01, 2025 at 00:03 Date of Discharge: Sep 01, 2025 Labs/Diagnostic Data: Laboratory Results Test 09/01/25 08:19 08/31/25 22:30 08/31/25 22:16 White Blood Count 5.7 10^3/uL (4.4-10.8) Red Blood Count 4.22 10^6/uL (4.5-5.90) Hemoglobin 8.3 g/dL (13.5-17.5) Hematocrit 30.5 % (41.0-53.0) Mean Corpuscular Volume 72.4 fL (80.0-100.0) Mean Corpuscular Hemoglobin 19.6 pg (28.0-32.0) Mean Corpuscular Hemoglobin Concent 27.1 g/dL (32.0-36.0) Red Cell Distribution Width 23.1 % (11.8-14.3) Platelet Count 254 10^3/uL (140-450) Mean Platelet Volume 9.2 fL (6.9-10.8) Neutrophils (%) (Auto) 66.5 % (37.0-80.0) Lymphocytes (%) (Auto) 22.4 % (10.0-50.0) Monocytes (%) (Auto) 7.4 % (0.0-12.0) Eosinophils (%) (Auto) 2.4 % (0.0-7.0) Basophils (%) (Auto) 1.3 % (0.0-2.0) Neutrophils # (Auto) 3.8 10 ^3/uL (1.6-8.6) Lymphocytes # (Auto) 1.3 10 ^3/uL (0.4-5.4) Monocytes # (Auto) 0.4 10 ^3/uL (0-1.3) Eosinophils # (Auto) 0.1 10 ^3/uL (0-0.8) Basophils # (Auto) 0.1 10 ^3/uL (0-0.2) Nucleated Red Blood Cells 0.2 % Sodium Level 143 mmol/L (136-145) Potassium Level 4.2 mmol/L (3.5-5.1) Chloride Level 105 mmol/L (98-107) Carbon Dioxide Level 31 mmol/L (20-31) Anion Gap 7 (5-15) Blood Urea Nitrogen 9 mg/dL (9-23) Creatinine 0.78 mg/dL (0.700-1.30) Glomerular Filtration Rate Calc 89 mL/min (>90) BUN/Creatinine Ratio 11.5 (10.0-20.0) Serum Glucose 103 mg/dL (74-106) Calcium Level 8.7 mg/dL (8.7-10.4) Magnesium Level 2.0 mg/dL (1.6-2.6) Total Bilirubin 0.2 mg/dL (0.2-1.0) Aspartate Amino Transferase (AST) 27 U/L (13-40) Alanine Aminotransferase (ALT) 21 U/L (7-40) Alkaline Phosphatase 109 U/L (46-116) Total Protein 7.8 g/dL (5.7-8.2) Albumin 4.1 g/dL (3.2-4.8) Urine Color Colorless (Yellow) Urine Clarity Clear (Clear) Urine pH 7.0 (5.0-9.0) Urine Specific [place] 1.005 (1.001-1.035) Urine Protein Negative (Negative) Urine Ketones Negative (Negative) Urine Blood 2+ /uL (Negative) Urine Nitrite Negative (Negative) Urine Bilirubin Negative (Negative) Urine Urobilinogen Normal mg/dL (Negative) Urine Leukocyte Esterase Negative /uL (Negative) Urine RBC 5 /hpf (0 - 3) Urine Microscopic WBC 1 /HPF (0-3) Urine Squamous Epithelial Cells None seen /hpf (<5) Urine Bacteria None seen /hpf (None Seen) Urine Glucose Normal mg/dL (Normal) Prothrombin Time 11.6 sec (9.3-11.8) Prothrombin Time INR 1.11 (0.9-1.15) Other Laboratory Tests 09/01/25 08:19 Brief Hx & Hospital Course: 80 year old male is complaining of hematuria for three days. Patient also reports urinary frequency. He reports he is taking Macrobid for UTI. Denies abdominal or back pain. While in the emergency department the patient was evaluated by the provider. The patient decided they wanted to leave AMA. The patient was informed about the risk of leaving. And was informed about the risk that are involved if they left without any treatment which may include . The patient was okay with it and decided to leave without any intervention. The patient was told to return for any worsening symptoms. Condition at Discharge: Undetermined Final Diagnosis/Problems List - Hematuria - Paroxysmal atrial fibrillation - Benign essential HTN - Anxiety Discharge Disposition: AMA Discharge Instruct/Medications Scheduled Dronedarone Hydrochloride (Multaq), 1 TAB PO BID, (Reported) Metoprolol Tartrate (Lopressor), 1 TAB PO TID, (Reported) Scheduled PRN Clonazepam (Klonopin), 1 TAB PO BID PRN for ANXIETY, (Reported) Discharge Statement: "Patient was advised to return to the ER or call 911 if any headaches, dizziness, shortness of breath, chest pain, abdominal pain, bleeding, fevers, or worsening of medical condition. Patient was counseled about treatment plan, medications, possible side effects, patientverbalized understanding. All questions were answered to the best of my ability. This discharge took greater then 30 minutes in planning, reviewing documentation, counseling the patient, and discussing with other team members." ASSESSMENT ASSESSMENT Assessment LIBERTY JOHNSON NP Sep 01, 2025 19:52
== END 2025-09-01 07:50 | disposition left against medical advice (07) | DRG 696 ==
LOC: ER 21:38 → OVERFLOW 09-01 00:03
PROVIDERS: ADMIT Internal Medicine; ATTEND Internal Medicine
DX: R31.9 Hematuria, unspecified (principal); F41.9 Anxiety disorder, unspecified; I10 Essential (primary) hypertension; Z53.29 Procedure and treatment not carried out because of patient's decision for other reasons; I48.0 Paroxysmal atrial fibrillation; Z82.49 Family history of ischemic heart disease and other diseases of the circulatory system; Z88.0 Allergy status to penicillin; Z88.2 Allergy status to sulfonamides; Z79.899 Other long term (current) drug therapy
CPT/HCPCS: 36415; 74176; 80048; 80053; 81001; 83735; 85025; 85610; G0378